=== PATIENT | female | born 1955 | race Caucasian/White ===

== ENCOUNTER 2017-04-12 18:27 | Emergency (ER) | payer OTHER ==
[~2017-04-12] VITALS: Ht 167.6 cm; Wt 68.0 kg
[~2017-04-12 18:27] MED LIST: ADVAIR DISKUS 21 DSK PO; ALBUTEROL2.5 MG/3 M INH/SOL; AMOX-CLAV 875-1 EACH PO; AUGMENTIN 875 M1 TAB PO; AUGMENTIN 875875 MG PO; AZITHROMYCIN250 M1 PO; AZITHROMYCIN250 MG PO; AZITHROMYCIN500 M3 PO; BENADRYL/LIDO/MAALOX PO; BUPROPION300 MG PO; CLARITIN10 MG PO; DALIRESP500 MCG PO; DILTIAZEM HCL120 M2 PO; DUONEB 3 MG/3 ML3 ML INH/SOL; FLONASE120 SPRAY/ NASB; FLUTICASON0.05 MG/A2 NASB; GUAIFENESIN ER600 MG PO; KERYDIN10 ML TOP; LEVAQUIN 500MG500 MG PO; LEVOFLOXACIN500 MG PO; MEDROL DOSEPAK1 PAC PO; MONTELUKAST SOD10 MG PO; NYSTATIN100000 UNI PO; PREDNISONE 10MG10 M1 PO; PREDNISONE 10MG10 MG PO; PREDNISONE10 M2 PO; PREDNISONE10 MG PO; PREDNISONE20 M1 PO; PREDNISONE5 MG PO; ROBITUSSIN W/CO10 ML PO; SPIRIVA 18 MCG18 MCG INH; TAMIFLU 75MG75 MG PO; TESSALON PERLE100 MG PO; XARELTO STARTER20 MG PO; XARELTO20 M1 PO; ZITHROMAX Z-PA250 M1 PO; ZOFRAN ODT4 MG PO; ZOFRAN4 M1 PO
--- NOTE | 2017-04-12 18:38 | ED UPPER/LOWER EXTREMITY COMPL ---
History of Present Illness General Chief Complaint: General Adult Stated Complaint: PT LT FOOT IS SWOLLEN Source: patient, old records Exam Limitations: no limitations Vital Signs & Intake/Output Vital Signs & Intake/Output Vital Signs Date Time Temp Pulse Resp B/P B/P Pulse O2 O2 Flow FiO2 Mean Ox Delivery Rate 04/12 2015 97.5 91 18 125/86 97 Room Air Room Air 04/12 1831 97.7 120 18 129/87 96 Room Air Allergies Coded Allergies: NO KNOWN ALLERGIES (01/07/15) Reconcile Medications Albuterol Sulfate (Proair Hfa) 90 MCG HFA.AER.AD 2 PUF INH Q4H PRN ASTHMA/COPD (Reported) Diltiazem HCl (Diltiazem 24HR ER) 120 MG CAP.ER.24H 1 CAP PO DAILY HEART/BP ( Reported) Fluticasone/Salmeterol (Advair 250-50 Diskus) 250 MCG-50 MCG/DOSE BLST.W.DEV 1 PUF INH BID ASTHMA/COPD (Reported) Montelukast Sodium 10 MG TABLET 1 TAB PO DAILY ASTHMA/COPD (Reported) Prednisone 10 MG TABLET 1 TAB PO EOD ASTHMA/COPD (Reported) Rivaroxaban (Xarelto) 20 MG TABLET 1 TAB PO DAILY BLOOD THINNER (Reported) with food Roflumilast (Daliresp) 500 MCG TABLET 1 TAB PO DAILY ASTHMA/COPD (Reported) Tiotropium [place] (Spiriva) 18 MCG CAP.W.DEV 1 CAP INH DAILY ASTHMA/COPD ( Reported) Triage Note: PT HAS SWELLING TO LEFT FOOT NO INJURY \ PT STATES IT HAS BEEN SWELLING ON AND OFF FOR THE PAST 2 WEEKS WORSE TODAY. Triage Nurses Notes Reviewed? yes Onset: Gradual Duration: week(s): (2), constant Timing: recent history Severity: mild Severity Numbers: 1 Pain/Injury Location: Left: Ankle. 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 She denies any swelling to her leg, there is no pain. She denies any chest pain shortness of breath fever chills. No rashes to her skin she denies any swelling to her right foot. she has been compliant with taking her xarelto. She reports a few weeks ago she was on prednisone which causes generalized swelling which has since resolved. There are no modifying factors or associated symptoms, no recent travel or immobility no history of trauma she denies any difficulty with weightbearing on her leg (MIRIAM DOTSON) Past History Travel History Traveled to [place] past 21 day No Medical History Any Pertinent Medical History? 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 No (MIRIAM DOTSON) Review of Systems Review of Systems Constitutional: Reports: see HPI. All Other Systems: Reviewed and Negative Comments Review of systems: See HPI, All other systems negative. Constitutional, no chills no fever, no malaise HEENT: No visual changes no sore throat no congestion Cardiovascular: No chest pain , no palpitation Skin: no rashes, no change in skin Respiratory: No dyspnea no cough no sputum GI: No nausea no vomiting, no diarrhea Muscle skeletal: No joint pain, no joint swelling, no back pain, no neck pain, Neurologic: no headache Psych: No stress Heme/endocrine: No bruising Immunology: No lymphadenopathy (MIRIAM DOTSON) Physical Exam Physical Exam General Appearance: well developed/nourished, no apparent distress, alert, awake Comments: Well-developed well-nourished person in no acute distress HEENT: Normal EENT exam; PERRL, EOMI, HEAD is atraumatic. moist mucous membranes. Neck: Supple,normal range of motion Back: Nontender, no CVA tenderness. Full range of motion Cardiovascular: Regular rate and rhythms no murmurs rubs Respiratory: No respiratory distress. Patient speaking in full complete sentences. Breath sounds clear to auscultation bilaterally: NO W/R/R UPPER Extremity: No edema, full range of motion of extremities 5 out of 5 strength noted to bilateral upperextremities Hip/Pelvis: Atraumatic/Stable. FROM. Knee: Atraumatic/stable. FROM. No joint swelling, Leg: Atraumatic. Nontender. 5 out of 5 strength in the lower extremity, normal dorsiflexion of great toe bilaterally, gross sensation is intact, patellar tendon reflex 2+ bilaterally. No edema, neg homans sign Ankle/Foot: There is 2+ edema noted to the dorsal left foot and left ankle, Atraumatic/stable. Skin intact. FROM. No swelling, no effusion. No laxity on exam Pulses: Normal/equal DP/PT pulses bilaterally. Brisk cap refill Neuro: Alert oriented x3, motor sensory normal, There were no obvious focal neurologic abnormalities. Skin: No appreciable rash on exposed skin, skin is warm and dry. Psych: Mood and affect is normal, memory and judgment is normal. (LOLLY CHEEMA,MIRIAM) Progress Differential Diagnosis: arterial insufficiency, cellulitis, contusion, dislocation, DVT, sprain, peripheral edema Plan of Care: Orders Procedure Date/time Status US-UNILATERAL VENOUS DOPPLER 04/12 1851 Active Ultrasound ordered patient noted to be tachycardic in triage she denies any chest pain shortness of breath over records reviewed no. Patient's previous emergency room visits she has been persistently tachycardic in the 100s to 120s. Case was discussed with Dr. flores I discussed with the patient at length all of their results. I had an extensive conversation regarding need for close follow up with their primary care physician this week as well as return precautions. I answered all of their questions, they feel comfortable with the plan and follow-up care. (MIRIAM DOTSON) Diagnostic Imaging: Viewed by Me: Ultrasound. Discussed w/RAD: Ultrasound. Radiology Impression: PATIENT: NARCISA YANCEY PRESENT AGE: 62 PATIENT ACCOUNT NO: [id number] : 57 LOCATION: [facility] ORDERING PHYSICIAN: MIRIAM CHEEMA SERVICE DATE: 04/12/17-1850 EXAM TYPE: US - US-UNILATERAL VENOUS DOPPLER EXAMINATION: US TRIPLEX LOWER EXTREMITY, LEFT CLINICAL INFORMATION: Pain. Edema. Swelling. COMPARISON: Bilateral lower extremity Doppler study 07/15/2015 dictated report. Images not available for review. TECHNIQUE: Color-flow triplex imaging with spectral analysis and compression Doppler were performed on the lower extremity. FINDINGS: Respiratory variation, normal compression and augmented flow are noted throughout the left lower extremity. The visualized common femoral vein, superficial femoral vein, profunda femoral vein, popliteal vein and midcalf peroneal and posterior tibial venous segments show no evidence of deep venous thrombosis. There is no Perkins's cyst. IMPRESSION: Normal triplex scan without evidence of deep venous thrombosis involving the lower extremity. DICTATED BY: ARIELLE TANNER MD DATE/TIME DICTATED: 04/12/171954 KINDERGARTEN AIDE:STACEY DATE/TIME TRANSCRIBED:04/12/171954 CONFIDENTIAL, DO NOT COPY WITHOUT APPROPRIATE AUTHORIZATION. <Electronically signed in Other Vendor System> SIGNED BY: ARIELLE TANNER MD 04/12/172000 (MIRIAM DOTSON) Departure Departure Time of Disposition: 2004 Disposition: HOME OR SELF CARE Condition: Stable Clinical Impression Primary Impression: Peripheral edema Referrals: CARLOTA SEAY,Dominik WAN (PCP/Family) Additional Instructions: keep leg elevated, follow up with dr munguia. return to the er with any concerns Departure Forms: Customer Survey General Discharge Information (MIRIAM DOTSON) PA/MASTER CONTROL SUPERVISOR Co-Sign Statement Statement: ED Attending supervision documentation- x I saw and evaluated the patient. I have also reviewed all the pertinent lab results and diagnostic results. I agree with the findings and the plan of care as documented in the PA's/MASTER CONTROL SUPERVISOR's documentation. [] I have reviewed the ED Record and agree with the PA's/MASTER CONTROL SUPERVISOR's documentation. [] Additions or exceptions (if any) to the PAs/MASTER CONTROL SUPERVISOR's note and plan are summarized below: [] (AAYUSH SEAY,KEN)
[2017-04-12] MEDS ORDERED: PROAIR HFA8.5 GM INH (19:48)
[2017-04-12] MEDS ORDERED: ADVAIR 250-501 EACH INH (19:49)
[2017-04-12] MEDS ORDERED: SPIRIVA18 MCG INH (19:49)
[2017-04-12] MEDS ORDERED: DALIRESP500 MC1 PO (19:49)
[2017-04-12] MEDS ORDERED: DILTIAZEM 24HR120 MG PO (19:49)
[2017-04-12] MEDS ORDERED: XARELTO20 M2 PO (19:50)
[2017-04-12] MEDS ORDERED: MONTELUKAST SOD10 M1 PO (19:50)
[2017-04-12] MEDS ORDERED: PREDNISONE10 M2 PO (19:52)
--- NOTE | 2017-04-12 20:01 | ULTRASOUND REPORT ---
EXAMINATION: US TRIPLEX LOWER EXTREMITY, LEFT CLINICAL INFORMATION: Pain. Edema. Swelling. COMPARISON: Bilateral lower extremity Doppler study 07/15/2015 dictated report. Images not available for review. TECHNIQUE: Color-flow triplex imaging with spectral analysis and compression Doppler were performed on the lower extremity. FINDINGS: Respiratory variation, normal compression and augmented flow are noted throughout the left lower extremity. The visualized common femoral vein, superficial femoral vein, profunda femoral vein, popliteal vein and midcalf peroneal and posterior tibial venous segments show no evidence of deep venous thrombosis. There is no Perkins's cyst. IMPRESSION: Normal triplex scan without evidence of deep venous thrombosis involving the lower extremity.
[2017-04-12 20:15] VITALS: BP 125/86
== END 2017-04-12 20:18 ==
LOC: ERH 18:27
DX: R60.0 Localized edema (principal)

== ENCOUNTER 2018-01-20 07:14 | Emergency (ER) | payer OTHER ==
[~2018-01-20] VITALS: Ht 167.6 cm; Wt 68.0 kg
[~2018-01-20 07:14] MED LIST changes: +ADVAIR 250-501 EACH INH; +DALIRESP500 MC1 PO; +DILTIAZEM 24HR120 MG PO; +MONTELUKAST SOD10 M1 PO; +PROAIR HFA8.5 GM INH; +SPIRIVA18 MCG INH; +XARELTO20 M2 PO
--- NOTE | 2018-01-20 07:32 | ED INFLUENZA/URI COMPLAINT ---
History of Present Illness General Chief Complaint: Upper Respiratory Sx/Fever Stated Complaint: COUGH CONGESTION Source: patient, old records Exam Limitations: no limitations Vital Signs & Intake/Output Vital Signs & Intake/Output Vital Signs Date Time Temp Pulse Resp B/P B/P Pulse O2 O2 Flow FiO2 Mean Ox Delivery Rate 01/20 0904 97.8 96 18 114/59 97 Room Air 01/20 0742 98 Room Air 01/20 0717 97.8 130 22 132/82 96 Room Air Room Air Allergies Coded Allergies: NO KNOWN ALLERGIES (01/07/15) Reconcile Medications Albuterol Sulfate (Proair Hfa) 90 MCG HFA.AER.AD 2 PUF INH Q4H PRN ASTHMA/COPD (Reported) Amoxicillin/Potassium Clav (Augmentin 875-125 Tablet) 875 MG-125 MG TABLET 1 TAB PO BID PNEUMONIA Diltiazem HCl (Diltiazem 24HR ER) 120 MG CAP.ER.24H 1 CAP PO DAILY HEART/BP ( Reported) Fluticasone/Salmeterol (Advair 250-50 Diskus) 250 MCG-50 MCG/DOSE BLST.W.DEV 1 PUF INH BID ASTHMA/COPD (Reported) Montelukast Sodium 10 MG TABLET 1 TAB PO DAILY ASTHMA/COPD (Reported) Rivaroxaban (Xarelto) 20 MG TABLET 1 TAB PO DAILY BLOOD THINNER (Reported) with food Roflumilast (Daliresp) 500 MCG TABLET 1 TAB PO DAILY ASTHMA/COPD (Reported) Tiotropium [place] (Spiriva) 18 MCG CAP.W.DEV 1 CAP INH DAILY ASTHMA/COPD ( Reported) Triage Note: TRIAGE: 62 y/o female presents c/o cough, weakness since Sunday. Productive cough with white mucous. Afebrile in triage: 97.8. TACHY: 130s. Triage Nurses Notes Reviewed? yes HPI: Patient presents with just not feeling right since Sunday. Positive anorexia. Positive weakness. She denies shortness of breath. There is no distention exertion or orthopnea. There is no chest pain or chest tightness. There are no fevers or chills. There are no no myalgias. She states she just has no desire to eat and feels very weak and rundown. Patient has a chronic productive cough with white sputum. She states that that is not changed from her baseline. Past History Travel History Traveled to [place] past 21 day No Medical History Any Pertinent Medical History? 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 No Review of Systems Review of Systems Constitutional: Reports: see HPI, weakness. EENTM: Reports: no symptoms. Respiratory: Reports: see HPI, cough. Cardiovascular: Reports: no symptoms. GI: Reports: see HPI (ANOREXIA). Genitourinary: Reports: no symptoms. Musculoskeletal: Reports: no symptoms. Skin: Reports: no symptoms. Neurological/Psychological: Reports: no symptoms. Hematologic/Endocrine: Reports: no symptoms. Immunologic/Allergic: Reports: no symptoms. All Other Systems: Reviewed and Negative Physical Exam Physical Exam General Appearance: well developed/nourished, alert, awake, anxious, mild distress Head: atraumatic, normal appearance Eyes: Bilateral: PERRL, EOMI. Ears, Nose, Throat: normal ENT inspection, moist mucous membrane, hearing grossly normal Neck: normal inspection, supple, full range of motion Respiratory: normal breath sounds, chest non-tender, no respiratory distress, lungs clear Cardiovascular: regular rate/rhythm, normal peripheral pulses Gastrointestinal: normal bowel sounds, soft, non-tender, no organomegaly Back: normal inspection, normal range of motion Extremities: normal inspection, normal capillary refill, normal range of motion, no edema Neurologic/Psych: no motor/sensory deficits, awake, alert, oriented x 3, normal gait, normal mood/affect Skin: intact, normal color, warm/dry Lymphatic: no anterior cervical belen Core Measures Sepsis Present: No Sepsis Focused Exam Completed? No Progress Differential Diagnosis: influenza, pneumonia, sinusitis Plan of Care: Orders Procedure Date/time Status RAPID VIRAL INFLUENZA A 01/21 736 Complete BLOOD CULTURE 01/21 736 Active TROPONIN LEVEL 01/21 736 Complete COMPREHENSIVE METABOLIC PANEL 01/21 736 Complete CBC WITHOUT DIFFERENTIAL 01/21 736 Complete EKG 01/21 720 Active Current Medications Sig/Zachary Start time Last Medication Dose Stop Time Status Admin Ceftriaxone Sodium 1,000 MG ONCE ONE 01/20 900 UNVr 01/20 (Rocephin) 01/20 0901 0904 Laboratory Tests 01/20/18 0738: Anion Gap 16, Estimated GFR > 60, BUN/Creatinine Ratio 20.0, Glucose 124 H, Calcium 9.7, Total Bilirubin 0.8, AST 14, ALT 26, Alkaline Phosphatase 78, Troponin I < 0.01, Total Protein 7.3, Albumin 4.2, Globulin 3.1, Albumin/ Globulin Ratio 1.4, CBC w Diff NO MAN DIFF REQ, RBC 4.48, MCV 92.6, MCH 31.2 H, MCHC 33.7, RDW 14.4, MPV 7.5, Gran % 68.6, Lymphocytes % 21.3, Monocytes % 8.6, Eosinophils % 1.1, Basophils % 0.4, Absolute Granulocytes 7.6 H, Absolute Lymphocytes 2.4, Absolute Monocytes 1.0 H, Absolute Eosinophils 0.1, Absolute Basophils 0.1 Microbiology 01/20 855 BLOOD: Blood Culture - RECD 01/20 739 NASOPHARYN: Influenza Virus A & B Rapid Smear - COMP 01/21 736 BLOOD: Blood Culture - ORD Diagnostic Imaging: Viewed by Me: Radiology Read. Discussed w/RAD: Radiology Read. Initial ED EKG: STACH WITH PACS,NO STT CHANGES Prior EKG: unchanged Rhythm Strip: sinus tachycardia Comments: Patient is feeling better after IV fluids and her heart rate has come down. Patient has been updated lab and chest x-ray results. Patient wants to go home. Patient will be discharged with antibiotics and she promises to return if symptoms worsen. Departure Departure Disposition: HOME OR SELF CARE Condition: Stable Clinical Impression Primary Impression: Pneumonia Referrals: Julieta SEAY,MLee Nuno (PCP/Family) Additional Instructions: TAKE AUGMENTIN PRESCRIBED RETURN IF SYMPTOMS WORSEN OR FOR ANY CONCERNS Departure Forms: Customer Survey General Discharge Information Prescriptions: Current Visit Scripts Amoxicillin/Potassium Clav (Augmentin 875-125 Tablet) 1 TAB PO BID #14 TAB
[2018-01-20 07:50] LABS: ABSOLUTE BASOPHIL COUNT 0.1 /CUMM (0.0-0.2); ABSOLUTE EOSINOPHIL COUNT 0.1 /CUMM (0.0-0.7); ABSOLUTE GRANULOCYTE CT 7.6 /CUMM (1.4-6.5); ABSOLUTE LYMPH COUNT 2.4 /CUMM (1.2-3.4); BASOPHIL % 0.4 % (0.0-2.0); EOSINOPHIL % 1.1 % (0-5); GRANULOCYTE % 68.6 % (42.2-75.2); HEMATOCRIT 41.5 % (37-47); MEAN CORPUSCULAR HGB 31.2 PG (27.0-31.0); MEAN CORPUSCULAR HGB CONC 33.7 G/DL (33.0-37.0); MEAN CORPUSCULAR VOLUME 92.6 FL (81.0-99.0); MEAN PLATELET VOLUME 7.5 FL (7.4-10.4); PLATELET COUNT 343 /CUMM (130-400); RBC DISTRIBUTION WIDTH 14.4 % (11.5-14.5); RED BLOOD CELL CT 4.48 /CUMM (4.20-5.40); WHITE BLOOD CELL COUNT 11.1 /CUMM (4.8-10.8)
--- NOTE | 2018-01-20 08:39 | RADIOLOGY REPORT ---
EXAMINATION: XR PORTABLE CHEST CLINICAL INFORMATION: Cough COMPARISON: March 02, [address] of the chest of April 11, 2017 TECHNIQUE: Portable frontal view of the chest was obtained. FINDINGS: There is prominence of the right infrahilar region which may be related to atelectasis or possible small focus of pneumonitis. No pneumothorax or pleural effusion. Heart normal size. No active pulmonary edema. IMPRESSION: Right infrahilar density for which PA and lateral views of the chest may be of help in better evaluation.
[2018-01-20] MEDS ORDERED: AUGMENTIN 875-1 EACH PO (09:00)
[2018-01-20 09:04] VITALS: BP 114/59
== END 2018-01-20 09:29 ==
LOC: ERH 07:14
PROVIDERS: Emergency Medicine
DX: J18.9 Pneumonia, unspecified organism (principal)
CPT/HCPCS: 71045; 87040; 87804; 87804-59; 93005; 93010; 96361; 96374; J0696

== ENCOUNTER 2018-02-16 09:15 | Emergency (ER) | payer OTHER ==
[~2018-02-16 09:15] MED LIST changes: +AUGMENTIN 875-1 EACH PO
[2018-02-16] MEDS ORDERED: MACROBID 100 M100 MG PO (11:14)
--- NOTE | 2018-02-16 11:14 | ED GI/GU/ABDOMINAL COMPLAINT ---
History of Present Illness General Chief Complaint: Female Urogenital Problems Stated Complaint: UTI S/S Source: patient Exam Limitations: no limitations Vital Signs & Intake/Output Vital Signs & Intake/Output Vital Signs Date Time Temp Pulse Resp B/P B/P Pulse O2 O2 Flow FiO2 Mean Ox Delivery Rate 02/16 0945 98.0 112 18 147/83 98 Room Air Allergies Coded Allergies: NO KNOWN ALLERGIES (01/07/15) Reconcile Medications Albuterol Sulfate (Proair Hfa) 90 MCG HFA.AER.AD 2 PUF INH Q4H PRN ASTHMA/COPD (Reported) Amoxicillin/Potassium Clav (Augmentin 875-125 Tablet) 875 MG-125 MG TABLET 1 TAB PO BID PNEUMONIA Diltiazem HCl (Diltiazem 24HR ER) 120 MG CAP.ER.24H 1 CAP PO DAILY HEART/BP ( Reported) Fluticasone/Salmeterol (Advair 250-50 Diskus) 250 MCG-50 MCG/DOSE BLST.W.DEV 1 PUF INH BID ASTHMA/COPD (Reported) Montelukast Sodium 10 MG TABLET 1 TAB PO DAILY ASTHMA/COPD (Reported) Nitrofurantoin Monohyd/M-Cryst (Macrobid 100 MG Capsule) 100 MG CAPSULE 1 CAP PO BID UTI with food Rivaroxaban (Xarelto) 20 MG TABLET 1 TAB PO DAILY BLOOD THINNER (Reported) with food Roflumilast (Daliresp) 500 MCG TABLET 1 TAB PO DAILY ASTHMA/COPD (Reported) Tiotropium [place] (Spiriva) 18 MCG CAP.W.DEV 1 CAP INH DAILY ASTHMA/COPD ( Reported) Triage Note: 62F WITH INCREASED URINARY URGENCY, SLIGHT DISCOMFORT WITH URINATION. DENIES HEMATURIA OR FLANK PAIN. WAS HERE FOR AN OUTPATIENT CXR AND FIGURED SHE'D GET HER URINE CHECKED Triage Nurses Notes Reviewed? yes ? N Is pt currently ? No Onset: Last week Duration: getting worse Timing: remote history Quality/Severity: FREQUENCY, URGENCY, PRESSURE Location: suprapubic Radiation: no radiation No Modifying Factors: none HPI: 62-year-old female presents to the emergency department reporting 1 week of urinary frequency, urinary urgency, and bladder pressure. She denies burning with urination. She reports history of having UTIs, however has not had one for a while. She denies any allergies. She also denies any back pain, fever, chills, nausea, vomiting. for a follow-up on a chest x-ray. She reports having pneumonia 3 weeks ago and was told to follow-up in the ED for a chest x-ray to ensure resolution. She had taken antibiotics for this episode of pneumonia, and she feels as though this has resolved. Past History Travel History Traveled to [place] past 21 day No Medical History Any Pertinent Medical History? 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 No Review of Systems Review of Systems Constitutional: Reports: no symptoms. EENTM: Reports: no symptoms. Respiratory: Reports: no symptoms. Cardiovascular: Reports: no symptoms. GI: Reports: no symptoms. Genitourinary: Reports: see HPI. Musculoskeletal: Reports: no symptoms. Skin: Reports: no symptoms. Neurological/Psychological: Reports: no symptoms. Hematologic/Endocrine: Reports: no symptoms. Immunologic/Allergic: Reports: no symptoms. All Other Systems: Reviewed and Negative Physical Exam Physical Exam General Appearance: well developed/nourished, no apparent distress, alert Head: atraumatic, normal appearance Eyes: Bilateral: normal appearance. Ears, Nose, Throat, Mouth: hearing grossly normal Neck: normal inspection, full range of motion Respiratory: no respiratory distress Gastrointestinal: soft, non-tender Back: normal range of motion Extremities: normal range of motion Neurologic/Psych: no motor/sensory deficits, awake, alert, oriented x 3, normal gait, normal mood/affect Skin: intact, normal color, warm/dry Core Measures ACS in differential dx? No Sepsis Present: No Sepsis Focused Exam Completed? No Progress Differential Diagnosis: UTI/pyelo Plan of Care: Orders Procedure Date/time Status CULTURE,URINE 02/17 944 Active URINALYSIS 05/05 0944 Complete Laboratory Tests 02/16/18 0953: Urine Color STRAW, Urine Clarity CLEAR, Urine pH 6.5, Ur Specific [place] 1.010, Urine Protein NEG, Urine Ketones NEG, Urine Nitrite NEG, Urine Bilirubin NEG, Urine Urobilinogen 0.2, Ur Leukocyte Esterase SMALL H, Ur Microscopic SEDIMENT EXAMINED, Urine RBC 1-3, Urine WBC 1-3 H, Ur Epithelial Cells OCCAS, Urine Hemoglobin TRACE-INTACT, Urine Glucose NEG Microbiology 02/16 09 URINE ROUT: Urine Culture - RECD Radiology Impression: no acute abnormality (resolved pneumonia, cxr nl) Initial ED EKG: none Departure Departure Disposition: HOME OR SELF CARE Condition: Stable Clinical Impression Primary Impression: UTI (urinary tract infection) Qualifiers: Urinary tract infection type: acute cystitis Hematuria presence: without hematuria Qualified Code: N30.00 - Acute cystitis without hematuria Referrals: Dominik Rendon MD (PCP/Family) Additional Instructions: TAKE MACROBID TWICE DAILY FOR 7 DAYS WITH FOOD. DRINK PLENTY OF FLUIDS. CALL YOUR PRIMARY CARE DOCTOR OR MEN'S GOLF COACH TO FOLLOW UP. RETURN WITH ANY WORSENING SYMPTOMS SUCH BACK PAIN, FEVER, CHILLS, NAUSEA, VOMITING. Departure Forms: Customer Survey General Discharge Information Prescriptions: Current Visit Scripts Nitrofurantoin Monohyd/M-Cryst (Macrobid 100 MG Capsule) 1 CAP PO BID 7 Days with food Comments 62-year-old female presented to the emergency room with urinary tract symptoms including urinary frequency, urinary urgency, and bladder pressure. She denied any burning with urination. She also had a chest x-ray earlier today as a follow-up to pneumonia 3 weeks ago, and the chest x-ray was normal. The urinalysis revealed white blood cells and leukocyte esterase which is indicative of a urinary tract infection. Will treat patient with Macrobid twice daily for 7 days. Since there is no burning with urination, pyridium was not prescribed. Will call patient with the urine culture when this results. She will follow up with primary care and/or MEN'S GOLF COACH. She will return to the emergency room with worsening symptoms, back pain, fever, chills, nausea, vomiting. Patient understands plan upon discharge.
[2018-02-16 11:37] VITALS: BP 132/72
== END 2018-02-16 11:37 ==
LOC: ERH 09:15
DX: N39.0 Urinary tract infection, site not specified (principal)
CPT/HCPCS: 81001; 87086